=== PATIENT | female | born 1960 | race Caucasian/White ===

== ENCOUNTER 2017-11-11 08:38 | Inpatient (IN) | payer OTHER ==
[2017-11-11] MEDS: SODIUM CHLORIDE 0.9% 1L BAG IV* (10:09)
[2017-11-11] MEDS: morphine 4 MG/ML VIAL IV (10:10)
[2017-11-11] MEDS: ONDANSETRON 4 MG INJ IV (10:10)
[2017-11-11 10:11] LABS: ADD MAN DIFF? YES; HEMATOCRIT 39.6 % (37.0-47.0); HEMOGLOBIN 13.4 g/dl (12.0-16.0); MEAN CORPUSCULAR HGB CONC 33.8 g/dl (32.0-37.0); MEAN CORPUSCULAR VOLUME 88.8 fl (82.0-101.0); MEAN PLATELET VOLUME 10.4 fl (7.4-10.4); PLATELET COUNT 366 10^3/UL (140-415); POSITIVE DIFF @See below; RED BLOOD COUNT 4.46 10^6/ul (4.20-5.40); RED CELL DISTRIBUTION WIDTH 13.9 % (11.5-14.5)
[2017-11-11 10:11] LABS: WHITE BLOOD COUNT 11.5 10^3/ul (4.8-10.8)
[2017-11-11 10:20] LABS: ADD UMIC NO; UR ASCORBIC ACID NEGATIVE (NEGATIVE); UR BILIRUBIN (Dip) NEGATIVE (NEGATIVE); UR BLOOD (Dip) NEGATIVE (NEGATIVE); UR CLARITY CLEAR (CLEAR); UR COLOR AMBER (YELLOW); UR GLUCOSE (Dip) NEGATIVE (NEGATIVE); UR KETONES (Dip) NEGATIVE (NEGATIVE); UR LEUKOCYTE ESTERASE (Dip) NEGATIVE Leu/ul (NEGATIVE); UR NITRITE (Dip) NEGATIVE (NEGATIVE); UR SPECIFIC GRAVITY (Dip) 1.011 (1.003-1.030); UR TOTAL PROTEIN (Dip) NEGATIVE (NEGATIVE); UR UROBILINOGEN (Dip) NEGATIVE (NEGATIVE)
[2017-11-11 10:35] LABS: ANISOCYTOSIS 1+ (0-0); BAND NEUTROPHILS #M 2.1 10^3/ul (0.0-0.6); BAND NEUTROPHILS % (M) 19 % (0-4); BURR CELLS 1+ (0-0); EOSINOPHILS % (M) 17 % (0-7); GIANT THROMBO% (M) 1 % (0-0); LYMPHOCYTES #M 1.7 10^3/ul (0.8-2.9); LYMPHOCYTES % (M) 15 % (15-51); METAMYELOCYTES #M 0.1 10^3/ul (0.0-0.0); METAMYELOCYTES %M 1 % (0-0); MONOCYTE #M 0.4 10^3/ul (0.3-0.9); MONOCYTES % (M) 4 % (0-11); PLATELET ESTIMATE NORMAL; POLYCHROMASIA 1+ (0-0); REACTIVE LYMPHOCYTES #M 0.6 10^3/ul (0.0-0.0); REACTIVE LYMPHOCYTES% (M) 6 % (0-0); SEG NEUT #M 4.6 10^3/ul (1.6-7.5); SEGMENTED NEUTROPHILS (M) % 38 % (39-77); SMUDGE%M 10 % (0-0)
[2017-11-11 10:41] LABS: INR 1.05; PROTIME 13.8 Sec (11.9-14.9); PT RATIO 1.1
[2017-11-11 10:42] LABS: PARTIAL THROMBOPLASTIN TIME 31.4 Sec (25.0-35.0)
[2017-11-11 10:44] LABS: LACTIC ACID 1.5 mmol/L (0.5-2.0)
[2017-11-11 11:25] LABS: ALANINE AMINOTRANSFERASE 22 IU/L (13-69); ALBUMIN 3.9 g/dl (3.3-4.9); ALBUMIN/GLOBULIN RATIO 0.97; ALKALINE PHOSPHATASE 91 IU/L (42-121); ANION GAP 16 (8-16); ASPARTATE AMINO TRANSFERASE 28 IU/L (15-46); BILIRUBIN,INDIRECT 0.4 mg/dl (0-1.1); BILIRUBIN,TOTAL 0.4 mg/dl (0.2-1.3); BLOOD UREA NITROGEN 7 mg/dl (7-20); CALCIUM 8.8 mg/dl (8.4-10.2); CARBON DIOXIDE 25 mmol/L (21-31); CHLORIDE 103 mmol/L (97-110); CREATININE 0.88 mg/dl (0.44-1.00); GLUCOSE 101 mg/dl (70-220); LIPASE 106 U/L (23-300); POTASSIUM 4.1 mmol/L (3.5-5.1); SODIUM 140 mmol/L (135-144); TOTAL PROTEIN 7.9 g/dl (6.1-8.1)
[2017-11-11 11:39] LABS: TROPONIN-I < 0.012 ng/ml (0.00-0.12)
[2017-11-11 13:19] LABS: LACTIC ACID 1.1 mmol/L (0.5-2.0)
[2017-11-11] MEDS: SOD CHLORIDE 0.9% 1,000 ML IV ×2 (14:24→20:42)
[2017-11-11] MEDS: CIPROFLOXACIN 400MG/D5W 200 ML IVPB ×2 (14:25→20:29)
[2017-11-11] MEDS: METHYLPREDNISOLONE 40 MG INJ IV ×2 (14:25→20:30)
[2017-11-11] MEDS: MESALAMINE (EC) 400 MG CAP PO ×2 (14:48→23:27)
[2017-11-11] MEDS: metroNIDAZOLE 500 MG/NS (PMX) 100 ML IVPB ×2 (15:23→22:00)
[2017-11-11 15:27] LABS: LACTIC ACID 1.1 mmol/L (0.5-2.0)
[2017-11-12] MEDS: SOD CHLORIDE 0.9% 1,000 ML IV ×4 (00:27→20:47)
[2017-11-12 05:36] LABS: WHITE BLOOD COUNT 7.1 10^3/ul (4.8-10.8)
[2017-11-12 05:36] LABS: HEMATOCRIT 34.4 % (37.0-47.0); HEMOGLOBIN 11.4 g/dl (12.0-16.0); MEAN CORPUSCULAR HEMOGLOBIN 29.5 pg (29.0-33.0); MEAN CORPUSCULAR HGB CONC 33.1 g/dl (32.0-37.0); MEAN CORPUSCULAR VOLUME 89.1 fl (82.0-101.0); PLATELET COUNT 330 10^3/UL (140-415); RED BLOOD COUNT 3.86 10^6/ul (4.20-5.40); RED CELL DISTRIBUTION WIDTH 13.8 % (11.5-14.5)
[2017-11-12 06:09] LABS: ANION GAP 13 (8-16); BLOOD UREA NITROGEN 7 mg/dl (7-20); CALCIUM 8.5 mg/dl (8.4-10.2); CARBON DIOXIDE 23 mmol/L (21-31); CHLORIDE 110 mmol/L (97-110); CREATININE 0.66 mg/dl (0.44-1.00); GLUCOSE 138 mg/dl (70-220); MAGNESIUM 2.2 mg/dl (1.7-2.5); SODIUM 142 mmol/L (135-144)
[2017-11-12] MEDS: metroNIDAZOLE 500 MG/NS (PMX) 100 ML IVPB ×3 (06:14→21:53)
[2017-11-12 06:19] LABS: PHOSPHORUS 4.6 mg/dl (2.5-4.9)
[2017-11-12 06:48] LABS: ADD MAN DIFF? YES; POSITIVE DIFF @See below
[2017-11-12 08:10] LABS: ANISOCYTOSIS 1+ (0-0); BAND NEUTROPHILS % (M) 29 % (0-4); GIANT THROMBO% (M) 1 % (0-0); LYMPHOCYTES #M 1.3 10^3/ul (0.8-2.9); LYMPHOCYTES % (M) 19 % (15-51); MONOCYTE #M 0.2 10^3/ul (0.3-0.9); MONOCYTES % (M) 3 % (0-11); PLATELET ESTIMATE NORMAL; REACTIVE LYMPHOCYTES% (M) 1 % (0-0); SEG NEUT #M 3.6 10^3/ul (1.6-7.5); SEGMENTED NEUTROPHILS (M) % 48 % (39-77); SMUDGE%M 14 % (0-0)
[2017-11-12] MEDS: MESALAMINE (EC) 400 MG CAP PO ×3 (08:23→20:46)
[2017-11-12] MEDS: METHYLPREDNISOLONE 40 MG INJ IV ×2 (08:23→20:45)
[2017-11-12] MEDS: CIPROFLOXACIN 400MG/D5W 200 ML IVPB ×2 (08:23→20:45)
[2017-11-12] MEDS ORDERED: ACETAMINOPHEN 325 MG TAB PO (15:00)
[2017-11-12] MEDS ORDERED: ONDANSETRON 4 MG INJ IV (15:00)
[2017-11-13] MEDS: SOD CHLORIDE 0.9% 1,000 ML IV ×4 (05:00→21:02)
[2017-11-13 05:17] LABS: ADD MAN DIFF? NO
[2017-11-13 05:22] LABS: WHITE BLOOD COUNT 5.9 10^3/ul (4.8-10.8)
[2017-11-13 05:22] LABS: BASOPHILS % 0.2 % (0.0-2.0); EOSINOPHILS % 0.5 % (0.0-7.0); HEMATOCRIT 32.4 % (37.0-47.0); HEMOGLOBIN 10.8 g/dl (12.0-16.0); LYMPHOCYTES # 1.6 10^3/ul (0.8-2.9); LYMPHOCYTES % 26.2 % (15.0-51.0); MEAN CORPUSCULAR HEMOGLOBIN 29.8 pg (29.0-33.0); MEAN CORPUSCULAR HGB CONC 33.3 g/dl (32.0-37.0); MEAN CORPUSCULAR VOLUME 89.5 fl (82.0-101.0); MEAN PLATELET VOLUME 10.9 fl (7.4-10.4); MONOCYTE # 0.3 10^3/ul (0.3-0.9); MONOCYTES % 5.6 % (0.0-11.0); PLATELET COUNT 342 10^3/UL (140-415); RED BLOOD COUNT 3.62 10^6/ul (4.20-5.40); RED CELL DISTRIBUTION WIDTH 14.1 % (11.5-14.5)
[2017-11-13] MEDS: metroNIDAZOLE 500 MG/NS (PMX) 100 ML IVPB (05:27)
[2017-11-13 05:28] LABS: POSITIVE DIFF @See below
[2017-11-13 06:06] LABS: ANION GAP 13 (8-16); BLOOD UREA NITROGEN 6 mg/dl (7-20); CARBON DIOXIDE 23 mmol/L (21-31); CHLORIDE 112 mmol/L (97-110); CREATININE 0.74 mg/dl (0.44-1.00); GLUCOSE 145 mg/dl (70-220); POTASSIUM 4.5 mmol/L (3.5-5.1); SODIUM 143 mmol/L (135-144)
[2017-11-13] MEDS: FAMOTIDINE 20 MG TAB PO (08:05)
[2017-11-13] MEDS: METHYLPREDNISOLONE 40 MG INJ IV ×2 (08:07→21:00)
[2017-11-13] MEDS: MESALAMINE (EC) 400 MG CAP PO ×3 (08:07→21:00)
[2017-11-13] MEDS: CIPROFLOXACIN 400MG/D5W 200 ML IVPB (08:08)
[2017-11-13] MEDS: BISACODYL (EC) 5 MG TAB PO (11:13)
[2017-11-13] MEDS: MEROPENEM 1 GM/50ML(PMX) 50 ML IVPB ×3 (11:13→21:45)
[2017-11-13] MEDS: POLYETHYLENE GLYCOL 3350 119 GM POWDER PO (17:03)
[2017-11-13] MEDS: MAGNESIUM CITRATE 300 ML BTL PO (17:04)
[2017-11-14] MEDS: MEROPENEM 1 GM/50ML(PMX) 50 ML IVPB (05:36)
[2017-11-14] MEDS: SOD CHLORIDE 0.9% 1,000 ML IV ×3 (05:36→21:00)
[2017-11-14] MEDS: POLYETHYLENE GLYCOL 3350 119 GM POWDER PO (05:37)
[2017-11-14 06:26] LABS: HEMATOCRIT 34.8 % (37.0-47.0); HEMOGLOBIN 11.6 g/dl (12.0-16.0); MEAN CORPUSCULAR HEMOGLOBIN 29.8 pg (29.0-33.0); MEAN CORPUSCULAR HGB CONC 33.3 g/dl (32.0-37.0); MEAN CORPUSCULAR VOLUME 89.5 fl (82.0-101.0); MEAN PLATELET VOLUME 10.6 fl (7.4-10.4); PLATELET COUNT 385 10^3/UL (140-415); RED BLOOD COUNT 3.89 10^6/ul (4.20-5.40); RED CELL DISTRIBUTION WIDTH 14.2 % (11.5-14.5)
[2017-11-14 06:26] LABS: WHITE BLOOD COUNT 7.2 10^3/ul (4.8-10.8)
[2017-11-14 07:11] LABS: ANION GAP 13 (8-16); BLOOD UREA NITROGEN 6 mg/dl (7-20); CALCIUM 8.1 mg/dl (8.4-10.2); CARBON DIOXIDE 22 mmol/L (21-31); CHLORIDE 114 mmol/L (97-110); CREATININE 0.68 mg/dl (0.44-1.00); GLUCOSE 131 mg/dl (70-220); POTASSIUM 4.5 mmol/L (3.5-5.1); SODIUM 144 mmol/L (135-144)
[2017-11-14 07:17] LABS: ADD MAN DIFF? YES; POSITIVE DIFF @See below
[2017-11-14] MEDS: MESALAMINE (EC) 400 MG CAP PO ×3 (08:31→21:36)
[2017-11-14] MEDS: BISACODYL (EC) 5 MG TAB PO (08:32)
[2017-11-14] MEDS: FAMOTIDINE 20 MG TAB PO (08:32)
[2017-11-14] MEDS: METHYLPREDNISOLONE 40 MG INJ IV ×2 (08:32→21:37)
[2017-11-14 09:18] LABS: BAND NEUTROPHILS #M 0.4 10^3/ul (0.0-0.6); BAND NEUTROPHILS % (M) 6 % (0-4); GIANT THROMBO% (M) 2 % (0-0); LYMPHOCYTES % (M) 14 % (15-51); MONOCYTE #M 0.4 10^3/ul (0.3-0.9); MONOCYTES % (M) 6 % (0-11); PLATELET ESTIMATE NORMAL; REACTIVE LYMPHOCYTES #M 0.2 10^3/ul (0.0-0.0); REACTIVE LYMPHOCYTES% (M) 3 % (0-0); SEG NEUT #M 5.1 10^3/ul (1.6-7.5); SEGMENTED NEUTROPHILS (M) % 71 % (39-77); SMUDGE%M 21 % (0-0)
[2017-11-14] MEDS: PROPOFOL 20 ML (19:51)
[2017-11-15] MEDS: SOD CHLORIDE 0.9% 1,000 ML IV ×2 (05:47→13:00)
[2017-11-15] MEDS: METHYLPREDNISOLONE 40 MG INJ IV (08:59)
[2017-11-15] MEDS: FAMOTIDINE 20 MG TAB PO (09:00)
[2017-11-15] MEDS: MESALAMINE (EC) 400 MG CAP PO ×2 (09:00→13:24)
[2017-11-16] MEDS ORDERED: predniSONE 20 MG TAB PO (09:00)
[2017-11-16] MEDS ORDERED: METHYLPREDNISOLONE 4 MG TAB PO (09:00)
== END 2017-11-15 18:48 | disposition home or self-care (01) | DRG 387 ==
LOC: E/R 08:38 → PP2 11:10
PROC: 0DBE8ZX Excision of Large Intestine, Via Natural or Artificial Opening Endoscopic, Diagnostic (ICD-10-PCS; principal; 2017-11-14 18:50)
DX: K51.90 Ulcerative colitis, unspecified, without complications (principal); K40.90 Unilateral inguinal hernia, without obstruction or gangrene, not specified as recurrent
CPT/HCPCS: 74176; 80048; 80053; 81003; 83605; 83690; 83735; 84100; 84484; 85025; 85610; 85730; 87040; 87045; 87075; 87086; 88305; 93005; 93971

== ENCOUNTER 2018-01-25 22:38 | Inpatient (IN) | payer OTHER ==
[2018-01-26] MEDS: ONDANSETRON 4 MG INJ IV (01:33)
[2018-01-26] MEDS: morphine 4 MG/ML VIAL IV (01:35)
[2018-01-26] MEDS: SOD CHLORIDE 0.9% 500 ML IV (01:35)
[2018-01-26 02:17] LABS: ADD MAN DIFF? NO
[2018-01-26 02:19] LABS: WHITE BLOOD COUNT 14.1 10^3/ul (4.8-10.8)
[2018-01-26 02:19] LABS: BASOPHIL # 0.1 10^3/ul (0.0-0.1); BASOPHILS % 0.6 % (0.0-2.0); EOSINOPHILS # 0.6 10^3/ul (0.0-0.5); EOSINOPHILS % 4.3 % (0.0-7.0); HEMATOCRIT 40.2 % (37.0-47.0); HEMOGLOBIN 13.4 g/dl (12.0-16.0); LYMPHOCYTES # 3.3 10^3/ul (0.8-2.9); LYMPHOCYTES % 23.7 % (15.0-51.0); MEAN CORPUSCULAR HEMOGLOBIN 28.7 pg (29.0-33.0); MEAN CORPUSCULAR HGB CONC 33.3 g/dl (32.0-37.0); MEAN CORPUSCULAR VOLUME 86.1 fl (82.0-101.0); MEAN PLATELET VOLUME 10.8 fl (7.4-10.4); MONOCYTE # 1.1 10^3/ul (0.3-0.9); MONOCYTES % 7.5 % (0.0-11.0); NEUTROPHILS % 63.4 % (39.0-77.0); PLATELET COUNT 457 10^3/UL (140-415); RED BLOOD COUNT 4.67 10^6/ul (4.20-5.40); RED CELL DISTRIBUTION WIDTH 13.3 % (11.5-14.5)
[2018-01-26 02:21] LABS: POSITIVE DIFF @See below
[2018-01-26 02:48] LABS: ADD UMIC NO; UR ASCORBIC ACID NEGATIVE (NEGATIVE); UR BILIRUBIN (Dip) NEGATIVE (NEGATIVE); UR BLOOD (Dip) NEGATIVE (NEGATIVE); UR CLARITY SLIGHTLY CLOUDY (CLEAR); UR COLOR YELLOW (YELLOW); UR GLUCOSE (Dip) NEGATIVE (NEGATIVE); UR KETONES (Dip) NEGATIVE (NEGATIVE); UR LEUKOCYTE ESTERASE (Dip) NEGATIVE Leu/ul (NEGATIVE); UR MUCUS FEW /HPF (NONE SEEN); UR NITRITE (Dip) NEGATIVE (NEGATIVE); UR RBC 3 /HPF (0-5); UR SQUAMOUS EPITHELIAL CELL MODERATE /HPF (FEW); UR TOTAL PROTEIN (Dip) NEGATIVE (NEGATIVE); UR UROBILINOGEN (Dip) NEGATIVE (NEGATIVE); UR WBC 2 /HPF (0-5)
[2018-01-26 03:21] LABS: ALANINE AMINOTRANSFERASE 13 IU/L (13-69); ALBUMIN/GLOBULIN RATIO 0.97; ALKALINE PHOSPHATASE 97 IU/L (42-121); ANION GAP 18 (8-16); ASPARTATE AMINO TRANSFERASE 19 IU/L (15-46); BILIRUBIN,INDIRECT 0.2 mg/dl (0-1.1); BILIRUBIN,TOTAL 0.2 mg/dl (0.2-1.3); BLOOD UREA NITROGEN 8 mg/dl (7-20); CALCIUM 9.1 mg/dl (8.4-10.2); CARBON DIOXIDE 21 mmol/L (21-31); CHLORIDE 107 mmol/L (97-110); CREATININE 0.83 mg/dl (0.44-1.00); GLUCOSE 119 mg/dl (70-220); LIPASE 1311 U/L (23-300); POTASSIUM 3.6 mmol/L (3.5-5.1); SODIUM 142 mmol/L (135-144); TOTAL PROTEIN 8.1 g/dl (6.1-8.1)
[2018-01-26] MEDS ORDERED: ONDANSETRON 4 MG INJ IV (04:30)
[2018-01-26] MEDS ORDERED: NACL 0.9% 3 ML SYG IV (04:30)
[2018-01-26] MEDS ORDERED: morphine 2 MG INJ IV (04:30)
[2018-01-26] MEDS: SOD CHLORIDE 0.9% 1,000 ML IV (05:00)
[2018-01-26] MEDS: METHYLPREDNISOLONE 40 MG INJ IV ×3 (05:05→20:09)
[2018-01-26 06:23] LABS: ERYTHROCYTE SEDIMENTATION RATE 78 mm/Hr (0-30)
[2018-01-26 06:28] LABS: LACTIC ACID 0.9 mmol/L (0.5-2.0)
[2018-01-26] MEDS: PANTOPRAZOLE 40 MG INJ IV (08:02)
[2018-01-26] MEDS: MESALAMINE (EC) 400 MG CAP PO ×3 (10:43→20:10)
[2018-01-26] MEDS: DEXTROSE 5%-0.45% NACL 1,000 ML IV (10:45)
[2018-01-26 12:10] LABS: ALANINE AMINOTRANSFERASE 13 IU/L (13-69); ALBUMIN 3.7 g/dl (3.3-4.9); ALBUMIN/GLOBULIN RATIO 0.97; ALKALINE PHOSPHATASE 98 IU/L (42-121); ANION GAP 20 (8-16); ASPARTATE AMINO TRANSFERASE 15 IU/L (15-46); BILIRUBIN,INDIRECT 0.2 mg/dl (0-1.1); BILIRUBIN,TOTAL 0.2 mg/dl (0.2-1.3); BLOOD UREA NITROGEN 8 mg/dl (7-20); CALCIUM 9.3 mg/dl (8.4-10.2); CARBON DIOXIDE 20 mmol/L (21-31); CHLORIDE 106 mmol/L (97-110); CREATININE 0.81 mg/dl (0.44-1.00); GLUCOSE 110 mg/dl (70-220); POTASSIUM 4.1 mmol/L (3.5-5.1); SODIUM 142 mmol/L (135-144); TOTAL PROTEIN 7.5 g/dl (6.1-8.1)
[2018-01-26 12:18] LABS: HEMATOCRIT 35.4 % (37.0-47.0); HEMOGLOBIN 11.6 g/dl (12.0-16.0); MEAN CORPUSCULAR HEMOGLOBIN 29.4 pg (29.0-33.0); MEAN CORPUSCULAR HGB CONC 32.8 g/dl (32.0-37.0); MEAN CORPUSCULAR VOLUME 89.8 fl (82.0-101.0); MEAN PLATELET VOLUME 10.8 fl (7.4-10.4); PLATELET COUNT 385 10^3/UL (140-415); RED BLOOD COUNT 3.94 10^6/ul (4.20-5.40); RED CELL DISTRIBUTION WIDTH 13.4 % (11.5-14.5)
[2018-01-26 12:18] LABS: WHITE BLOOD COUNT 10.7 10^3/ul (4.8-10.8)
[2018-01-26 12:22] LABS: ADD MAN DIFF? YES; POSITIVE DIFF @See below
[2018-01-26 13:28] LABS: ANISOCYTOSIS 3+ (0-0); BAND NEUTROPHILS #M 1.9 10^3/ul (0.0-0.6); BAND NEUTROPHILS % (M) 18 % (0-4); BURR CELLS 1+ (0-0); EOSINOPHILS % (M) 7 % (0-7); GIANT THROMBO% (M) 1 % (0-0); LYMPHOCYTES % (M) 38 % (15-51); MICROCYTOSIS 3+ (0-0); MONOCYTE #M 0.6 10^3/ul (0.3-0.9); MONOCYTES % (M) 6 % (0-11); PLATELET ESTIMATE NORMAL; POIKILOCYTOSIS 1+ (0-0); POLYCHROMASIA 1+ (0-0); SEG NEUT #M 3.5 10^3/ul (1.6-7.5); SEGMENTED NEUTROPHILS (M) % 31 % (39-77); SMUDGE%M 6 % (0-0)
[2018-01-27] MEDS: DEXTROSE 5%-0.45% NACL 1,000 ML IV ×3 (01:01→17:25)
[2018-01-27] MEDS ORDERED: LORAZEPAM 0.5 MG TAB PO (01:30)
[2018-01-27] MEDS: PANTOPRAZOLE 40 MG INJ IV (06:19)
[2018-01-27] MEDS: MESALAMINE (EC) 400 MG CAP PO ×3 (08:51→21:47)
[2018-01-27] MEDS: METHYLPREDNISOLONE 40 MG INJ IV ×2 (08:53→21:47)
[2018-01-27] MEDS: LORAZEPAM 0.5 MG TAB PO (10:33)
[2018-01-27 12:22] LABS: MAGNESIUM 2.1 mg/dl (1.7-2.5)
[2018-01-27] MEDS: MERCAPTOPURINE 50 MG TAB PO (14:25)
[2018-01-28] MEDS: PANTOPRAZOLE 40 MG INJ IV (06:10)
[2018-01-28] MEDS: DEXTROSE 5%-0.45% NACL 1,000 ML IV ×2 (06:23→20:39)
[2018-01-28] MEDS: METHYLPREDNISOLONE 40 MG INJ IV (08:27)
[2018-01-28] MEDS: MESALAMINE (EC) 400 MG CAP PO ×3 (08:28→20:29)
[2018-01-28] MEDS: MERCAPTOPURINE 50 MG TAB PO (08:29)
[2018-01-28 17:19] LABS: LIPASE 274 U/L (23-300)
[2018-01-29 06:04] LABS: LIPASE 352 U/L (23-300)
[2018-01-29] MEDS: PANTOPRAZOLE 40 MG INJ IV (06:07)
[2018-01-29] MEDS: predniSONE 20 MG TAB PO (09:18)
[2018-01-29] MEDS: MESALAMINE (EC) 400 MG CAP PO ×3 (09:18→21:48)
[2018-01-29] MEDS: MERCAPTOPURINE 50 MG TAB PO (09:20)
[2018-01-29] MEDS: DEXTROSE 5%-0.45% NACL 1,000 ML IV ×2 (10:33→18:30)
[2018-01-30] MEDS: DEXTROSE 5%-0.45% NACL 1,000 ML IV ×2 (01:20→17:12)
[2018-01-30 03:11] LABS: ADD UMIC NO; UR ASCORBIC ACID NEGATIVE (NEGATIVE); UR BILIRUBIN (Dip) NEGATIVE (NEGATIVE); UR BLOOD (Dip) NEGATIVE (NEGATIVE); UR CLARITY CLEAR (CLEAR); UR COLOR COLORLESS (YELLOW); UR GLUCOSE (Dip) NEGATIVE (NEGATIVE); UR KETONES (Dip) NEGATIVE (NEGATIVE); UR LEUKOCYTE ESTERASE (Dip) NEGATIVE Leu/ul (NEGATIVE); UR NITRITE (Dip) NEGATIVE (NEGATIVE); UR SPECIFIC GRAVITY (Dip) 1.002 (1.003-1.030); UR TOTAL PROTEIN (Dip) NEGATIVE (NEGATIVE); UR UROBILINOGEN (Dip) NEGATIVE (NEGATIVE)
[2018-01-30] MEDS: PANTOPRAZOLE 40 MG INJ IV (05:30)
[2018-01-30 06:21] LABS: ADD MAN DIFF? NO
[2018-01-30 06:25] LABS: ABNORMAL IP MESSAGE 1; BASOPHILS % 0.3 % (0.0-2.0); EOSINOPHILS # 0.2 10^3/ul (0.0-0.5); EOSINOPHILS % 1.5 % (0.0-7.0); HEMATOCRIT 35.3 % (37.0-47.0); HEMOGLOBIN 11.6 g/dl (12.0-16.0); LYMPHOCYTES # 5.1 10^3/ul (0.8-2.9); LYMPHOCYTES % 43.2 % (15.0-51.0); MEAN CORPUSCULAR HEMOGLOBIN 28.9 pg (29.0-33.0); MEAN CORPUSCULAR HGB CONC 32.9 g/dl (32.0-37.0); MEAN PLATELET VOLUME 10.6 fl (7.4-10.4); MONOCYTES % 8.5 % (0.0-11.0); NEUTROPHIL # 5.4 10^3/ul (1.6-7.5); NEUTROPHILS % 45.8 % (39.0-77.0); PLATELET COUNT 472 10^3/UL (140-415); RED BLOOD COUNT 4.01 10^6/ul (4.20-5.40); RED CELL DISTRIBUTION WIDTH 13.1 % (11.5-14.5)
[2018-01-30 06:25] LABS: WHITE BLOOD COUNT 11.7 10^3/ul (4.8-10.8)
[2018-01-30 06:33] LABS: POSITIVE DIFF @See below
[2018-01-30 06:36] LABS: LIPASE 449 U/L (23-300)
[2018-01-30 07:04] LABS: ALANINE AMINOTRANSFERASE 28 IU/L (13-69); ALBUMIN 2.8 g/dl (3.3-4.9); ALBUMIN/GLOBULIN RATIO 0.93; ALKALINE PHOSPHATASE 60 IU/L (42-121); ANION GAP 12 (8-16); ASPARTATE AMINO TRANSFERASE 20 IU/L (15-46); BLOOD UREA NITROGEN 10 mg/dl (7-20); CALCIUM 8.8 mg/dl (8.4-10.2); CARBON DIOXIDE 27 mmol/L (21-31); CHLORIDE 110 mmol/L (97-110); GLUCOSE 79 mg/dl (70-220); POTASSIUM 4.4 mmol/L (3.5-5.1); SODIUM 145 mmol/L (135-144); TOTAL PROTEIN 5.8 g/dl (6.1-8.1)
[2018-01-30] MEDS: predniSONE 20 MG TAB PO (08:44)
[2018-01-30] MEDS: MERCAPTOPURINE 50 MG TAB PO (08:44)
[2018-01-30] MEDS: MESALAMINE (EC) 400 MG CAP PO ×3 (08:45→21:17)
[2018-01-31] MEDS: PANTOPRAZOLE 40 MG INJ IV (05:13)
[2018-01-31] MEDS: DEXTROSE 5%-0.45% NACL 1,000 ML IV ×2 (05:13→10:30)
[2018-01-31] MEDS: MESALAMINE (EC) 400 MG CAP PO ×2 (08:42→13:01)
[2018-01-31] MEDS: predniSONE 20 MG TAB PO (08:42)
[2018-01-31] MEDS: MERCAPTOPURINE 50 MG TAB PO (08:43)
[2018-01-31 12:46] LABS: LIPASE 700 U/L (23-300)
== END 2018-01-31 17:20 | disposition home or self-care (01) | DRG 385 ==
LOC: E/R 22:38 → PP2 01-26 04:05
DX: K51.90 Ulcerative colitis, unspecified, without complications (principal); K85.90 Acute pancreatitis without necrosis or infection, unspecified
CPT/HCPCS: 74176; 74181; 80053; 81001; 81003; 83605; 83690; 83735; 85025; 85651; 87040; 87045; 87086; 87177; 87205; 93005

== ENCOUNTER 2018-05-24 07:44 | Emergency (ER) | payer OTHER ==
[2018-05-24 10:18] LABS: ADD MAN DIFF? NO
[2018-05-24] MEDS: ASPIRIN 81 MG TAB PO (10:19)
[2018-05-24 10:45] LABS: BASOPHIL # 0.1 10^3/ul (0.0-0.1); BASOPHILS % 0.8 % (0.0-2.0); EOSINOPHILS # 0.5 10^3/ul (0.0-0.5); EOSINOPHILS % 4.9 % (0.0-7.0); HEMATOCRIT 45.3 % (37.0-47.0); HEMOGLOBIN 14.6 g/dl (12.0-16.0); LYMPHOCYTES # 4.2 10^3/ul (0.8-2.9); LYMPHOCYTES % 39.1 % (15.0-51.0); MEAN CORPUSCULAR HEMOGLOBIN 26.6 pg (29.0-33.0); MEAN CORPUSCULAR HGB CONC 32.2 g/dl (32.0-37.0); MEAN CORPUSCULAR VOLUME 82.5 fl (82.0-101.0); MEAN PLATELET VOLUME 12.4 fl (7.4-10.4); MONOCYTE # 0.8 10^3/ul (0.3-0.9); MONOCYTES % 7.8 % (0.0-11.0); NEUTROPHILS % 47.2 % (39.0-77.0); PLATELET COUNT 331 10^3/UL (140-415); RED BLOOD COUNT 5.49 10^6/ul (4.20-5.40); RED CELL DISTRIBUTION WIDTH 13.8 % (11.5-14.5)
[2018-05-24 10:45] LABS: WHITE BLOOD COUNT 10.6 10^3/ul (4.8-10.8)
[2018-05-24 10:51] LABS: ALANINE AMINOTRANSFERASE 14 IU/L (13-69); ALBUMIN 4.2 g/dl (3.3-4.9); ALBUMIN/GLOBULIN RATIO 1.07; ALKALINE PHOSPHATASE 102 IU/L (42-121); ANION GAP 15 (8-16); ASPARTATE AMINO TRANSFERASE 23 IU/L (15-46); BILIRUBIN,INDIRECT 0.3 mg/dl (0-1.1); BILIRUBIN,TOTAL 0.3 mg/dl (0.2-1.3); BLOOD UREA NITROGEN 12 mg/dl (7-20); CALCIUM 9.3 mg/dl (8.4-10.2); CARBON DIOXIDE 24 mmol/L (21-31); CHLORIDE 109 mmol/L (97-110); CREATININE 0.72 mg/dl (0.44-1.00); GLUCOSE 91 mg/dl (70-220); LIPASE 105 U/L (23-300); POTASSIUM 4.1 mmol/L (3.5-5.1); SODIUM 144 mmol/L (135-144); TOTAL PROTEIN 8.1 g/dl (6.1-8.1)
[2018-05-24 11:03] LABS: B-TYPE NATRIURETIC PEPTIDE 47 PG/ML (0-125); TROPONIN-I < 0.010 ng/ml (0.000-0.120)
[2018-05-24] MEDS: SOD CHLORIDE 0.9% 100 ML (12:09)
[2018-05-24] MEDS: IOHEXOL 100 ML (12:09)
[2018-05-24] MEDS: predniSONE 20 MG TAB PO (13:03)
[2018-05-24] MEDS: IPRATROPIUM (NEB) 0.5 MG/2.5 ML AMP INH (13:20)
[2018-05-24] MEDS: ALBUTEROL 0.5% (NEB) 2.5 MG/0.5 ML AMP INH (13:21)
== END 2018-05-24 14:12 | disposition home or self-care (01) ==
LOC: E/R 07:44
DX: J45.41 Moderate persistent asthma with (acute) exacerbation (principal)
CPT/HCPCS: 36415; 71045; 71275; 80053; 83690; 83880; 84484; 85025; 93005; 94644; 99285-25

== ENCOUNTER 2018-09-08 07:54 | Observation (INO) | payer OTHER ==
[2018-09-08] MEDS: ALBUTEROL 0.083% (NEB) 2.5 MG/3 ML AMP INH (08:53)
[2018-09-08 08:54] LABS: ADD MAN DIFF? NO
[2018-09-08] MEDS: METHYLPREDNISOLONE 125 MG INJ IV (08:58)
[2018-09-08 09:08] LABS: BASOPHIL # 0.1 10^3/ul (0.0-0.1); BASOPHILS % 0.6 % (0.0-2.0); EOSINOPHILS # 0.7 10^3/ul (0.0-0.5); EOSINOPHILS % 6.1 % (0.0-7.0); HEMATOCRIT 44.2 % (37.0-47.0); HEMOGLOBIN 14.9 g/dl (12.0-16.0); LYMPHOCYTES % 24.8 % (15.0-51.0); MEAN CORPUSCULAR HEMOGLOBIN 27.9 pg (29.0-33.0); MEAN CORPUSCULAR HGB CONC 33.7 g/dl (32.0-37.0); MEAN CORPUSCULAR VOLUME 82.6 fl (82.0-101.0); MEAN PLATELET VOLUME 11.6 fl (7.4-10.4); MONOCYTE # 0.7 10^3/ul (0.3-0.9); MONOCYTES % 5.8 % (0.0-11.0); NEUTROPHIL # 7.5 10^3/ul (1.6-7.5); NEUTROPHILS % 62.5 % (39.0-77.0); PLATELET COUNT 331 10^3/UL (140-415); RED BLOOD COUNT 5.35 10^6/ul (4.20-5.40); RED CELL DISTRIBUTION WIDTH 14.3 % (11.5-14.5)
[2018-09-08 09:08] LABS: WHITE BLOOD COUNT 12.1 10^3/ul (4.8-10.8)
[2018-09-08 09:19] LABS: ALANINE AMINOTRANSFERASE 12 IU/L (13-69); ALBUMIN 4.1 g/dl (3.3-4.9); ALBUMIN/GLOBULIN RATIO 1.05; ALKALINE PHOSPHATASE 96 IU/L (42-121); ANION GAP 10 (5-13); ASPARTATE AMINO TRANSFERASE 37 IU/L (15-46); BILIRUBIN,INDIRECT 0.7 mg/dl (0-1.1); BILIRUBIN,TOTAL 0.7 mg/dl (0.2-1.3); BLOOD UREA NITROGEN 14 mg/dl (7-20); CALCIUM 9.2 mg/dl (8.4-10.2); CARBON DIOXIDE 25 mmol/L (21-31); CHLORIDE 106 mmol/L (97-110); Estimated GFR > 60 mL/min (>60); GLUCOSE 97 mg/dl (70-220); POTASSIUM 3.8 mmol/L (3.5-5.1); SODIUM 141 mmol/L (135-144)
[2018-09-08] MEDS: ALBUTEROL 0.5% (NEB) 2.5 MG/0.5 ML AMP INH (13:39)
[2018-09-08 14:03] LABS: B-TYPE NATRIURETIC PEPTIDE 64 PG/ML (0-125)
[2018-09-08] MEDS ORDERED: ONDANSETRON 4 MG INJ IV (14:30)
[2018-09-08] MEDS ORDERED: HYDROCODONE/APAP (5/325) TAB PO (15:00)
[2018-09-08] MEDS ORDERED: NACL 0.9% 3 ML SYG IV (15:00)
[2018-09-08] MEDS: IOHEXOL 100 ML (15:04)
[2018-09-08] MEDS: SOD CHLORIDE 0.9% 100 ML (15:04)
[2018-09-08 15:25] LABS: D-DIMER 272.51 ng/ml (<460)
[2018-09-08] MEDS: ENOXAPARIN 40 MG/0.4 ML SYG SC (16:00)
[2018-09-08] MEDS: ALBUTEROL/IPRATROPIUM (NEB) 3 ML AMP HHN (20:00)
[2018-09-09] MEDS: ALBUTEROL/IPRATROPIUM (NEB) 3 ML AMP HHN ×4 (01:58→19:56)
[2018-09-09 06:11] LABS: ADD MAN DIFF? NO
[2018-09-09 06:13] LABS: WHITE BLOOD COUNT 17.5 10^3/ul (4.8-10.8)
[2018-09-09 06:13] LABS: BASOPHILS % 0.1 % (0.0-2.0); EOSINOPHILS % 0.1 % (0.0-7.0); HEMATOCRIT 42.2 % (37.0-47.0); LYMPHOCYTES # 3.3 10^3/ul (0.8-2.9); LYMPHOCYTES % 18.8 % (15.0-51.0); MEAN CORPUSCULAR HEMOGLOBIN 27.5 pg (29.0-33.0); MEAN CORPUSCULAR HGB CONC 33.2 g/dl (32.0-37.0); MEAN CORPUSCULAR VOLUME 82.7 fl (82.0-101.0); MEAN PLATELET VOLUME 12.1 fl (7.4-10.4); MONOCYTE # 0.8 10^3/ul (0.3-0.9); MONOCYTES % 4.8 % (0.0-11.0); NEUTROPHIL # 13.2 10^3/ul (1.6-7.5); NEUTROPHILS % 75.8 % (39.0-77.0); PLATELET COUNT 350 10^3/UL (140-415); RED CELL DISTRIBUTION WIDTH 14.5 % (11.5-14.5)
[2018-09-09 06:29] LABS: HEMOGLOBIN A1C 5.3 % (0-5.9)
[2018-09-09 06:58] LABS: ALANINE AMINOTRANSFERASE 19 IU/L (13-69); ALBUMIN/GLOBULIN RATIO 1.21; ALKALINE PHOSPHATASE 80 IU/L (42-121); ANION GAP 12 (5-13); ASPARTATE AMINO TRANSFERASE 30 IU/L (15-46); BILIRUBIN,INDIRECT 0.4 mg/dl (0-1.1); BILIRUBIN,TOTAL 0.4 mg/dl (0.2-1.3); BLOOD UREA NITROGEN 15 mg/dl (7-20); CALCIUM 9.5 mg/dl (8.4-10.2); CARBON DIOXIDE 26 mmol/L (21-31); CHLORIDE 106 mmol/L (97-110); CREATININE 0.64 mg/dl (0.44-1.00); Estimated GFR > 60 mL/min (>60); GLUCOSE 102 mg/dl (70-220); POTASSIUM 4.5 mmol/L (3.5-5.1); SODIUM 144 mmol/L (135-144); TOTAL PROTEIN 7.3 g/dl (6.1-8.1)
[2018-09-09] MEDS: predniSONE 20 MG TAB PO (09:02)
[2018-09-09] MEDS: ENOXAPARIN 40 MG/0.4 ML SYG SC (09:05)
[2018-09-09] MEDS: ACETAMINOPHEN 325 MG TAB PO (10:34)
[2018-09-09] MEDS: GUAIFENESIN/DM 5ML CUP PO (16:43)
[2018-09-10] MEDS: ALBUTEROL/IPRATROPIUM (NEB) 3 ML AMP HHN ×3 (01:40→14:00)
[2018-09-10] MEDS: GUAIFENESIN/DM 5ML CUP PO (08:32)
[2018-09-10] MEDS: predniSONE 20 MG TAB PO (08:33)
[2018-09-10] MEDS: ENOXAPARIN 40 MG/0.4 ML SYG SC (08:37)
[2018-09-10] MEDS: INFLUENZA VIRUS VACCINE 0.5 ML (DISPENSING) IM* (16:15)
[2018-09-11 19:11] LABS: ANA SCREEN NEGATIVE (NEGATIVE)
== END 2018-09-10 16:29 | disposition home or self-care (01) ==
LOC: E/R 07:54 → 6WM 14:25
DX: R05 Cough (principal); K51.90 Ulcerative colitis, unspecified, without complications; Z88.0 Allergy status to penicillin; Z23 Encounter for immunization
CPT/HCPCS: 36415; 71045; 71275; 80053; 83036; 83880; 85025; 85378; 86038; 86606; 86635; 87040; 90686; 93005; 93306; 94640; 94644; 94664; 96374; 99285-25; G0378

== ENCOUNTER 2018-10-19 06:35 | Emergency (ER) | payer OTHER ==
[2018-10-19 07:14] LABS: ADD MAN DIFF? NO
[2018-10-19 07:19] LABS: BASOPHIL # 0.1 10^3/ul (0.0-0.1); BASOPHILS % 0.8 % (0.0-2.0); EOSINOPHILS # 0.7 10^3/ul (0.0-0.5); EOSINOPHILS % 6.8 % (0.0-7.0); HEMATOCRIT 48.5 % (37.0-47.0); HEMOGLOBIN 16.3 g/dl (12.0-16.0); LYMPHOCYTES # 2.7 10^3/ul (0.8-2.9); LYMPHOCYTES % 25.2 % (15.0-51.0); MEAN CORPUSCULAR HEMOGLOBIN 28.5 pg (29.0-33.0); MEAN CORPUSCULAR HGB CONC 33.6 g/dl (32.0-37.0); MEAN CORPUSCULAR VOLUME 84.8 fl (82.0-101.0); MONOCYTE # 0.5 10^3/ul (0.3-0.9); NEUTROPHIL # 6.6 10^3/ul (1.6-7.5); NEUTROPHILS % 61.9 % (39.0-77.0); PLATELET COUNT 311 10^3/UL (140-415); RED BLOOD COUNT 5.72 10^6/ul (4.20-5.40); RED CELL DISTRIBUTION WIDTH 13.2 % (11.5-14.5)
[2018-10-19 07:19] LABS: WHITE BLOOD COUNT 10.6 10^3/ul (4.8-10.8)
[2018-10-19 07:53] LABS: ANION GAP 12 (5-13); BLOOD UREA NITROGEN 11 mg/dl (7-20); CALCIUM 9.8 mg/dl (8.4-10.2); CARBON DIOXIDE 26 mmol/L (21-31); CHLORIDE 106 mmol/L (97-110); CREATININE 0.73 mg/dl (0.44-1.00); Estimated GFR > 60 mL/min (>60); GLUCOSE 100 mg/dl (70-220); POTASSIUM 3.9 mmol/L (3.5-5.1); SODIUM 144 mmol/L (135-144)
[2018-10-19 08:03] LABS: TROPONIN-I < 0.012 ng/ml (0.000-0.120)
[2018-10-19 08:08] LABS: FREE T4 (FREE THYROXINE) 1.49 ng/dl (0.78-2.44)
[2018-10-19 08:22] LABS: THYROID STIMULATING HORMONE 0.753 MIU/L (0.465-4.680)
== END 2018-10-19 10:11 | disposition home or self-care (01) ==
LOC: E/R 06:35
DX: R00.2 Palpitations (principal); R40.2142 Coma scale, eyes open, spontaneous, at arrival to emergency department; R40.2362 Coma scale, best motor response, obeys commands, at arrival to emergency department; R40.2252 Coma scale, best verbal response, oriented, at arrival to emergency department
CPT/HCPCS: 36415; 71045; 80048; 83735; 84439; 84443; 84484; 85025; 93005; 99285-25

== ENCOUNTER 2019-02-13 16:45 | Emergency (ER) | payer OTHER ==
[2019-02-13] MEDS: LORAZEPAM 1 MG TAB PO (17:57)
== END 2019-02-13 19:06 | disposition home or self-care (01) ==
LOC: FTE 16:45
DX: F41.9 Anxiety disorder, unspecified (principal)
CPT/HCPCS: 99283; Z7502

== ENCOUNTER 2019-03-26 15:59 | Emergency (ER) | payer OTHER ==
[2019-03-26 18:18] LABS: Allen Test ACCEPTAB; Arterial Base Excess 1.7 mmol/L (-3.0-3); Arterial COHb 0.4 % (0.0-3.0); Arterial Fraction of Oxyhgb 92.4 % (93.0-99.0); Arterial HCO3 25.3 mmol/L (22.0-26.0); Arterial MetHb 0.2 % (0.0-1.5); Arterial pCO2 36.5 mmhg (35-45); MODE ROOM AIR; Site Left Radial
[2019-03-26 18:44] LABS: ADD MAN DIFF? NO
[2019-03-26 18:47] LABS: WHITE BLOOD COUNT 12.4 10^3/ul (4.8-10.8)
[2019-03-26 18:47] LABS: BASOPHIL # 0.1 10^3/ul (0.0-0.1); BASOPHILS % 0.6 % (0.0-2.0); EOSINOPHILS # 0.4 10^3/ul (0.0-0.5); EOSINOPHILS % 3.1 % (0.0-7.0); HEMATOCRIT 43.5 % (37.0-47.0); HEMOGLOBIN 14.6 g/dl (12.0-16.0); LYMPHOCYTES % 32.4 % (15.0-51.0); MEAN CORPUSCULAR HEMOGLOBIN 29.1 pg (29.0-33.0); MEAN CORPUSCULAR HGB CONC 33.6 g/dl (32.0-37.0); MEAN CORPUSCULAR VOLUME 86.7 fl (82.0-101.0); MONOCYTE # 0.8 10^3/ul (0.3-0.9); MONOCYTES % 6.3 % (0.0-11.0); NEUTROPHIL # 7.1 10^3/ul (1.6-7.5); NEUTROPHILS % 57.2 % (39.0-77.0); PLATELET COUNT 293 10^3/UL (140-415); RED BLOOD COUNT 5.02 10^6/ul (4.20-5.40); RED CELL DISTRIBUTION WIDTH 12.7 % (11.5-14.5)
[2019-03-26] MEDS: LORAZEPAM 2 MG INJ IV (18:55)
[2019-03-26] MEDS: KETOROLAC 15 MG INJ IV (18:55)
[2019-03-26] MEDS: SOD CHLORIDE 0.9% 500 ML IV (18:55)
[2019-03-26 19:08] LABS: ANION GAP 8 (5-13); BLOOD UREA NITROGEN 18 mg/dl (7-20); CALCIUM 9.2 mg/dl (8.4-10.2); CARBON DIOXIDE 26 mmol/L (21-31); CHLORIDE 106 mmol/L (97-110); Estimated GFR > 60 mL/min (>60); GLUCOSE 102 mg/dl (70-220); SODIUM 140 mmol/L (135-144)
[2019-03-26 19:38] LABS: TROPONIN-I < 0.012 ng/ml (0.000-0.120)
== END 2019-03-26 20:07 | disposition home or self-care (01) ==
LOC: E/R 15:59
DX: R07.9 Chest pain, unspecified (principal); R00.2 Palpitations; F41.9 Anxiety disorder, unspecified
CPT/HCPCS: 36415; 36600; 71045; 80048; 82803; 84484; 85025; 93005; 96374; 96375; 99285-25